=== PATIENT | female | born 1945 | race Two or more races ===

== ENCOUNTER 2023-07-02 15:12 | Emergency (ER) | payer OTHER ==
[~2023-07-02] VITALS: Ht 160 cm; Wt 36.7 kg
[2023-07-02 15:22] VITALS: BP 112/76; TEMP 98; O2SAT 98
[2023-07-02] MEDS ORDERED: IV NS 0.9% 1,000 ML BAG IV ONE (15:30)
[2023-07-02 16:06] LABS: CALCIUM, SERUM 9.1 mg/dL (8.5-10.1); CARBON DIOXIDE 24 mmol/L (21-32); CHLORIDE 103 mmol/L (98-107); CREATININE 0.7 mg/dL (0.6-1.3); GLUCOSE 116 mg/dL (74-106); POTASSIUM 4.8 mmol/L (3.5-5.1); SODIUM SERUM 135 mmol/L (136-145); UREA NITROGEN, BLOOD 25 mg/dL (7-18)
[2023-07-02 16:12] LABS: ALANINE AMINOTRANSFERASE 34 U/L (12-78); ALBUMIN 2.8 g/dL (3.4-5.0); ALKALINE PHOSPHATASE 108 U/L (46-116); ASPARTATE AMINOTRANSFERASE 34 U/L (15-37); BILIRUBIN,TOTAL 0.2 mg/dL (0.2-1.0); TOTAL PROTEIN, SERUM 7.3 g/dL (6.4-8.2)
[2023-07-02 16:21] LABS: THYROID STIMULATING HORMONE 0.477 uIU/mL (0.358-3.74)
[2023-07-02 16:26] LABS: MAGNESIUM 2.4 mg/dL (1.8-2.4)
[2023-07-02] MEDS ORDERED: LEVO75TA7 PO (16:27)
[2023-07-02] MEDS ORDERED: MAG30ORA PO (16:27)
[2023-07-02] MEDS ORDERED: CLON0.1T PO (16:27)
[2023-07-02] MEDS ORDERED: ALEN70TA80 PO (16:27)
[2023-07-02] MEDS ORDERED: HYDR25TA4 PO (16:27)
[2023-07-02] MEDS ORDERED: METF-440 PO (16:27)
[2023-07-02] MEDS ORDERED: SERT25TA PO (16:27)
[2023-07-02] MEDS ORDERED: SITA100T PO (16:27)
[2023-07-02] MEDS ORDERED: LACT10SO3 PO (16:27)
[2023-07-02] MEDS ORDERED: ACET-2605 PO (16:27)
[2023-07-02] MEDS ORDERED: AMLO-213 PO (16:27)
[2023-07-02] MEDS ORDERED: IPRA3AMP23 IH (16:27)
[2023-07-02] MEDS ORDERED: CELE100C PO (16:27)
[2023-07-02] MEDS ORDERED: ACET-868 PO (16:27)
[2023-07-02] MEDS ORDERED: CHOL100043 PO (16:27)
[2023-07-02] MEDS ORDERED: INSU100V27 SQ (16:27)
[2023-07-02] MEDS ORDERED: ASPI-1420 PO (16:27)
[2023-07-02] MEDS ORDERED: DOCU250C14 PO (16:27)
[2023-07-02] MEDS ORDERED: ASCO-352 PO (16:27)
[2023-07-02] MEDS ORDERED: MAGN400T26 PO (16:27)
[2023-07-02] MEDS ORDERED: ATOR10TA PO (16:27)
[2023-07-02] MEDS ORDERED: MULT-447 PO (16:27)
[2023-07-02] MEDS ORDERED: LISI40TA13 PO (16:27)
[2023-07-02 16:29] LABS: BASOPHILS # (AUTO) 0.1 K/uL (0.0-0.2); BASOPHILS % (AUTO) 1.4 % (0.0-2.0); EOSINOPHILS # (AUTO) 0.3 K/uL (0.0-0.7); EOSINOPHILS % (AUTO) 3.5 % (0.0-6.0); HEMATOCRIT 35 % (33-45); HEMOGLOBIN 11.6 g/dL (11.5-14.8); LYMPHOCYTES # (AUTO) 1.7 K/uL (0.8-4.8); LYMPHOCYTES % (AUTO) 18.8 % (20.0-44.0); MEAN CORPUSCULAR HEMOGLOBIN 30 PG (26.0-33.0); MEAN CORPUSCULAR HGB CONC 33 g/dl (31.0-36.0); MEAN CORPUSCULAR VOLUME 91 fL (82-100); MONOCYTES # (AUTO) 0.5 K/uL (0.1-1.30); NEUTROPHILS # (AUTO) 6.4 K/uL (1.8-8.9); NEUTROPHILS % (AUTO) 70.3 % (43.0-81.0); PLATELET COUNT (AUTO) 229 K/uL (150-450); RED BLOOD CELL COUNT(AUTO) 3.89 MIL/uL (4.0-5.2); RED CELL DISTRIBUTION WIDTH 14.2 % (11.5-15.0); WHITE BLOOD COUNT (AUTO) 9.1 K/uL (4.3-11.0)
[2023-07-02 16:35] LABS: INR 0.93 (0.91-1.10); PARTIAL THROMBOPLASTIN TIME 23.6 SEC (24.3-34.3); PROTHROMBIN TIME 9.9 SECS (9.2-11.1)
[2023-07-02 17:31] LABS: APPEARANCE,URINE SLIGHTLY CLOUDY (CLEAR); BILIRUBIN,URINE NEGATIVE (NEGATIVE); BLOOD, URINE NEGATIVE Ery/uL (NEGATIVE); COLOR,URINE YELLOW (YELLOW); KETONES,URINE NEGATIVE (NEGATIVE); LEUKOCYTE ESTERASE ,URINE 1+ (NEGATIVE); NITRITE, URINE POSITIVE (NEGATIVE); PH,URINE 6.5 (5.0-8.0); PROTEIN,URINE NEGATIVE (NEGATIVE); UGLUCOSE NEGATIVE (NEGATIVE); UROBILINOGEN,URINE 0.2 EU/dL (0.2)
[2023-07-02 18:14] LABS: ADD URINE CULTURE YES; BACTERIA,URINE 2+ /HPF (None Seen); SQUAMOUS EPITHELIAL CELL,UR 0-2 /HPF (None Seen); YEAST,URINE None Seen /HPF (None Seen)
[2023-07-02] MEDS ORDERED: CEFD300C3 PO (18:22)
[2023-07-02] MEDS ORDERED: CEFTRIAXONE 1GM BAG (ER ONLY) 50 ML IV ONE (18:22)
[2023-07-02] MEDS ORDERED: CEFTRIAXONE 1GM BAG (ER ONLY) 1 GM/50 ML PIGGYBACK IV ONE (18:30)
== END 2023-07-02 21:24 ==
LOC: ER 15:12
DX: R53.1 Weakness (principal); N39.0 Urinary tract infection, site not specified; I10 Essential (primary) hypertension; E78.5 Hyperlipidemia, unspecified; E11.9 Type 2 diabetes mellitus without complications; F32.A Depression, unspecified; Z79.4 Long term (current) use of insulin; Z79.899 Other long term (current) drug therapy
CPT/HCPCS: 99284; 96365; 96361; 71045; 85025; 80048; 87086; 80076; 83735; 81001; 36415; 84439; 84443; 84484; 85730; 83880; J7030; J0696